=== PATIENT | female | born 1945 | race Caucasian/White ===

== ENCOUNTER 2016-11-29 12:16 | Emergency (ER) | payer MEDICARE, OTHER ==
[~2016-11-29] VITALS: Ht 149.9 cm; Wt 60.0 kg
[2016-11-29 12:19] VITALS: Ht 149.9 cm; Wt 60.0 kg
[2016-11-29] MEDS ORDERED: ACET325T33 PO (14:57)
[2016-11-29] MEDS ORDERED: ACETAMINOPHEN 325 MG TAB PO ONE (15:00)
--- NOTE | 2016-11-29 15:38 | ERD ---
DATE OF SERVICE: 11/29/2016 HISTORY OF PRESENT ILLNESS: The patient is a 71-year-old female complaining of a laceration to her left eyebrow. [place] the [place] in the bathroom and she had a mechanical fall. She did not have loss of consciousness. She is not on blood thinners. She has not had any dizziness or vomiting. She does not feel confused or dizzy. She is able to ambulate without any di fficulty. She is not taking medications for her symptoms. MEDICAL PROBLEMS: Denies. ALLERGIES TO MEDICATIONS: DENIES. PAST SURGICAL HISTORY: Cholecystectomy and heart valve replacement. SOCIAL HISTORY: Denies. REVIEW OF SYSTEMS: A 12-point review of systems was done. Refer to HPI for positives, all other sy stems negative. PHYSICAL EXAMINATION VITAL SIGNS: Temperature is 97.8, pulse 76, blood pressure is 130/71, respiratory 18, O2 saturation 99% on room air. Pain intensity of 2 out of 10. GENERAL: The patient is well-appearing, well-nourished, no acute distress. HEENT: Atraumatic. Conjunctivae are pink. Pupils equal, round, and reactive to light. There is no s cleral icterus. Tympanic membranes clear bilaterally. Oropharynx clear. No nystagmus or photophobia . CHEST: Clear to auscultation bilaterally. There are no rales, wheezes or rhonchi. HEART: Regular rate and rhythm. No murmurs, clicks, rubs or gallops. No S3 or S4. ABDOMEN: Soft, nontender and nondistended. Good bowel sounds. No rebound or guarding. No gross lyudmila tonitis. No gross organomegaly or masses. No Lundberg sign or McBurney point tenderness. BACK: No midline or flank tenderness. NEURO: Alert and oriented. Cranial nerves 2-12 intact. Motor strength in all 4 extremities with 5/5 strength. Sensation grossly intact. Normal speech and gait. Babinski negative. DTR 2+ throughout. SKIN: There are 2 lacerations over the left eyebrow, superior lacerations approximately 2 cm with a n unlinear length with no jagged edges. No tendon or ligament injury. No active bleeding, no forei gn body. Inferior laceration approximately 1 cm in length with no tendon or ligament injury and no active bleeding. EXTREMITIES: Normal extremity exam for upper and lower extremities. EMERGENCY ROOM COURSE: The wound was cleaned with copious amounts of normal saline. Edges were alaina roximated and Dermabond was applied. Patient tolerated procedure well. DIAGNOSES: 1. Laceration. 2. Mechanical fall. MEDICAL DECISION MAKING: I have low suspicion for intracranial hemorrhage or mass effect. The [place] ent's neuro exam is within normal limits. I did not feel that there was indication for a CT scan. Patient does not appear to be altered or confused. The patient is not on blood thinners. I have lo w suspicion for extremity injury as patient is ambulating without difficulty and has full range of m otion of all extremities. I do not feel that there is indication for laceration repair as the edges were well approximated and wounds were linear and Dermabond closed the lacerations well. DISCHARGE: The patient is discharged stable. Patient given prescription for Tylenol and told to re turn for wound check. Patient was told to allow Dermabond to fall off on its own. All other questi ons answered at time of discharge. Discharge summary given at the time of departure. Patient under stood and complied with plan. Dictated By: MADELYN WANG for [facility]/NTS Conf#: [id number] DID#: [id number]
== END 2016-11-29 16:03 | disposition home or self-care (01) ==
LOC: FTE 12:16
DX: S01.112A Laceration without foreign body of left eyelid and periocular area, initial encounter (principal); W18.30XA Fall on same level, unspecified, initial encounter; Y92.512 Supermarket, store or market as the place of occurrence of the external cause